=== PATIENT | male | born 1985 | race Caucasian/White ===

== ENCOUNTER 2017-05-10 23:33 | Emergency (ER) | payer BC ==
[~2017-05-10] VITALS: Ht 172.7 cm; Wt 75.0 kg
[2017-05-10 23:36] VITALS: BP 140/90; PULSE 120; RESP 16; TEMP 97.8; O2SAT 98
[2017-05-11 00:07] VITALS: BP 139/95; PULSE 108; RESP 18; O2SAT 100
[2017-05-11] MEDS ORDERED: SODIUM CHLOR 0.9% 1000 ML INJ 1,000 ML IV ONE (00:12)
[2017-05-11] MEDS ORDERED: SODIUM CHLORIDE 0.9% FLUSH 10 ML FLUSH IVF PRN (00:15)
[2017-05-11] MEDS ORDERED: ALPR.5 PO (00:16)
[2017-05-11] MEDS ORDERED: SUBO2MIS SL (00:16)
[2017-05-11] MEDS ORDERED: METH36 PO (00:16)
[2017-05-11] MEDS ORDERED: CLON0.1T PO (00:16)
[2017-05-11 00:44] LABS: AUTOMATED NEUTROPHIL # 3.8 TH/MM3 (1.8-7.7); BASOPHIL % 0.7 % (0.0-2.0); EOSINOPHIL # 0.1 TH/MM3 (0-0.4); EOSINOPHIL % 1.4 % (0.0-4.0); HEMATOCRIT 44.9 % (39.0-51.0); LYMPH % 35.9 % (9.0-44.0); LYMPHOCYTE # 2.4 TH/MM3 (1.0-4.8); MEAN CELL VOLUME 92.4 FL (80.0-100.0); MEAN CORPUSCULAR HEMOGLOBIN 32.9 PG (27.0-34.0); MEAN CORPUSCULAR HGB CONC 35.6 % (32.0-36.0); MEAN PLATELET VOLUME 9.8 FL (7.0-11.0); MONO % 5.9 % (0.0-8.0); MONOCYTE # 0.4 TH/MM3 (0-0.9); NEUT % 56.1 % (16.0-70.0); PLATELET COUNT 170 TH/MM3 (150-450); RED BLOOD COUNT 4.86 MIL/MM3 (4.50-5.90); RED CELL DISTRIBUTION WIDTH 12.6 % (11.6-17.2); WHITE BLOOD COUNT 6.7 TH/MM3 (4.0-11.0)
[2017-05-11 00:52] LABS: PROTHROMBIN TIME - PATIENT 10.1 SEC (9.8-11.6)
--- NOTE | 2017-05-11 01:12 | RADRPT ---
EXAM DATE/TIME: 05/11/2017 00:39 [facility] COMPARISON: No previous studies available for comparison. INDICATIONS : Short of breath. MEDICAL HISTORY : None. SURGICAL HISTORY : None. ENCOUNTER: Initial ACUITY: 1 day PAIN SCORE: Non-responsive. LOCATION: Bilateral chest FINDINGS: The cardiac silhouette is enlarged in transverse diameter. The lungs are free of acute parenchymal op acity. No effusions are identified. Osseous structures are intact. CONCLUSION: Cardiomegaly. No acute cardiopulmonary disease. Joss Alvarez MD on May 11, 2017 at 1:09 Board Certified Radiologist. This report was verified electronically.
[2017-05-11 01:13] LABS: ALBUMIN 4.1 GM/DL (3.4-5.0); ALT (GPT) 67 U/L (12-78); AST (GOT) 37 U/L (15-37); BICARBONATE 31.8 MEQ/L (21.0-32.0); BLOOD UREA NITROGEN 10 MG/DL (7-18); CALCIUM 8.9 MG/DL (8.5-10.1); CHLORIDE 109 MEQ/L (98-107); CREATININE 0.82 MG/DL (0.60-1.30); GLOMERULAR FILTRATION RATE 111 ML/MIN (>89); GLUCOSE,RANDOM 66 MG/DL (74-106); SODIUM (NA) 147 MEQ/L (136-145)
[2017-05-11 01:15] LABS: ALKALINE PHOSPHATASE 53 U/L (45-117); TOTAL BILIRUBIN ADULT 0.2 MG/DL (0.2-1.0); TOTAL PROTEIN 7.5 GM/DL (6.4-8.2)
[2017-05-11 01:16] LABS: ACETAMINOPHEN LESS THAN 2.0 MCG/ML (10.0-30.0)
[2017-05-11] MEDS ORDERED: THIAMINE INJ 100 MG in SODIUM CHLORIDE 0.9% INJ 100 ML IV ONE (01:30)
--- NOTE | 2017-05-11 01:38 | PD ---
HPI Chief Complaint: OD/ Ingestion Time Seen by Provider: 00:04 Travel History International Travel<30 days: No Contact w/Intl Traveler<30days: No Traveled to known affect area: No History of Present Illness HPI The patient is a 31 year old male who presents to the [facility] emergency department with a history of increased mood instability since having problems with the mother of his child. The patient reports that he began to drink alcohol to cope. He reports having a prior history of polysubstance abuse and alcohol abuse, however he had been abstaining from alcohol for the last few months up until recently. The patient reports that this evening he also between 9:30 and 10 PM took approximately 20 tablets of sleep aid, a diphenhydramine-containing medication, 25 mg tablets. He reports that he often takes this medication to help with sleep. He reports that usually he will take up to 5-6 tablets at a time. The patient reports that this evening he also drank a significant amount of whiskey. The patient's mother and father accompany him to this emergency department visit. They report concern that the patient is suicidal. The patient denies being suicidal at this time, however he does report feeling hopeless regarding his situation with the mother of his child. The patient reports that in the past he has been diagnosed with anxiety and other psychiatric disorders. He reports that over the last few months he has been on Xanax under the care of Dr. keith. The patient reports that he's had psychiatric problems since he was 14 years of age. He reports that his main problem at this point is difficulty's with family. He reports that he has family counseling scheduled for according to his mom and dad at the bedside. On review of systems otherwise, the patient denies having any known recent fevers, cough, congestion, neck pain, chest pain, shortness of breath, abdominal pain, vomiting, diarrhea, urinary symptoms, or neurologic symptoms. 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) Other Surgery: Yes (choclear implant) Social History Alcohol Use: Yes (half a bottle of whiskey tonight) Tobacco Use: Yes (one pack per day) Substance Use: No (suboxin) Allergies-Medications (Allergen,Severity, Reaction): Coded Allergies: sulfamethoxazole (Verified Allergy, Severe, 05/10/17) as a child trimethoprim (Verified Allergy, Severe, 05/10/17) as a child Reported Meds & Prescriptions Reported Meds & Active Scripts Active Reported Clonidine (Clonidine HCl) 0.1 Mg Tab 0.1 Mg PO BID Suboxone Sublingual Film (Buprenorphine-Naloxone Sublingual Film) 2-0.5 Mg Film 1 Film SL Unique ID number required: Concerta (Methylphenidate HCl) 36 Mg Bony 36 Mg PO DAILY Xanax (Alprazolam) 0.5 Mg Tab 0.5 Mg PO Q4H PRN Review of Systems Except as stated in HPI: all other systems reviewed are Neg General / Constitutional: No: Fever Eyes: No: Visual changes HENT: No: Headaches Cardiovascular: No: Chest Pain or Discomfort Respiratory: No: Shortness of Breath Gastrointestinal: No: Abdominal Pain Genitourinary: No: Dysuria Musculoskeletal: No: Pain Skin: No Rash Neurologic: Positive: Change in Mentation, Slurred Speech, No: Weakness, Focal Abnormalities, Sensory Disturbance Psychiatric: Positive: Anxiety, Depression, Mood Disorder, Substance Abuse, No : Homicidal Ideation Endocrine: No: Polydipsia Hematologic/Lymphatic: No: Easy Bruising Physical Exam Narrative General: The patient is a well-developed well-nourished male in no acute distress. Head and Neck exam: Head is normocephalic, with an abrasion noted to the nasal bridge/center of the forehead. Eyes: EOMI, pupils are equal round and reactive to light. Nose: Midline septum with pink mucous membranes Mouth: Dentition unremarkable. Moist mucus membranes. Posterior oropharynx is not erythematous. No tonsillar hypertrophy. Uvula midline. Airway patent. Neck: No palpable lymphadenopathy. No nuchal rigidity. No thyromegaly. Cardiovascular: Regular rate and rhythm without murmurs, gallops, or rubs. Lungs: Clear to auscultation bilaterally. No wheezes, rhonchi, or rales. Abdomen: Soft, without tenderness to palpation in all 4 quadrants of the abdomen. No guarding, rebound, or rigidity. Normal bowel sounds are audible. No tenderness on palpation of McBurney's point. Extremities: No clubbing, cyanosis, or edema. 2+ pulses in all 4 extremities. No calf tenderness on palpation. Back: No costovertebral angle tenderness to palpation. Neurologic Exam: Grossly nonfocal. The patient is oriented to person, place, situation, however not time. Patient has slurred speech and an odor of alcohol about him. Skin Exam: No rash noted. Intact skin that is warm and dry. Data Data Last Documented VS Vital Signs Date Time Temp Pulse Resp B/P (MAP) Pulse Ox O2 Delivery O2 Flow Rate FiO2 05/11/17 07:10 05/11/17 04:20 76 16 96 Room Air 05/10/17 23:36 97.8 Orders Orders Electrocardiogram (05/11/17 00:12) Complete Blood Count With Diff (05/11/17 00:12) Comprehensive Metabolic Panel (05/11/17 00:12) Prothrombin Time / Inr (Pt) (05/11/17 00:12) Act Partial Throm Time (Ptt) (05/11/17 00:12) Osmolality,Serum (05/11/17 00:12) Osmolality, Urine (05/11/17 00:12) Urinalysis - C+S If Indicated (05/11/17 00:12) Chest, Single Ap (05/11/17 00:12) Blood Glucose (05/11/17 00:12) Iv Access Insert/Monitor (05/11/17 00:12) Ecg Monitoring (05/11/17 00:12) Oximetry (05/11/17 00:12) Sodium Chloride 0.9% Flush (Ns Flush) (05/11/17 00:15) Sodium Chlor 0.9% 1000 Ml Inj (Ns 1000 M (05/11/17 00:12) Drug Screen, Random Urine (05/11/17 00:12) Alcohol (Ethanol) (05/11/17 00:12) Salicylates (Aspirin) (05/11/17 00:12) Tylenol (Acetaminophen) (1/9/18 00:12) Ct Brain W/O Iv Contrast(Rout) (05/11/17 00:12) Thiamine Inj (Thiamine Inj) (05/11/17 01:30) Bedside Glucose OTTO.CSUGAR (05/11/17 01:38) Psych Screen (05/11/17 03:57) Ed Discharge Order (05/11/17 06:31) Labs Laboratory Tests Test 05/11/17 00:25 05/11/17 04:10 White Blood Count 6.7 TH/MM3 Red Blood Count 4.86 MIL/MM3 Hemoglobin 16.0 GM/DL Hematocrit 44.9 % Mean Corpuscular Volume 92.4 FL Mean Corpuscular Hemoglobin 32.9 PG Mean Corpuscular Hemoglobin Concent 35.6 % Red Cell Distribution Width 12.6 % Platelet Count 170 TH/MM3 Mean Platelet Volume 9.8 FL Neutrophils (%) (Auto) 56.1 % Lymphocytes (%) (Auto) 35.9 % Monocytes (%) (Auto) 5.9 % Eosinophils (%) (Auto) 1.4 % Basophils (%) (Auto) 0.7 % Neutrophils # (Auto) 3.8 TH/MM3 Lymphocytes # (Auto) 2.4 TH/MM3 Monocytes # (Auto) 0.4 TH/MM3 Eosinophils # (Auto) 0.1 TH/MM3 Basophils # (Auto) 0.0 TH/MM3 CBC Comment DIFF FINAL Differential Comment Prothrombin Time 10.1 SEC Prothromb Time International Ratio 1.0 RATIO Activated Partial Thromboplast Time 25.8 SEC Blood Urea Nitrogen 10 MG/DL Creatinine 0.82 MG/DL Random Glucose 66 MG/DL Total Protein 7.5 GM/DL Albumin 4.1 GM/DL Calcium Level 8.9 MG/DL Alkaline Phosphatase 53 U/L Aspartate Amino Transf (AST/SGOT) 37 U/L Alanine Aminotransferase (ALT/SGPT) 67 U/L Total Bilirubin 0.2 MG/DL Sodium Level 147 MEQ/L Potassium Level 3.4 MEQ/L Chloride Level 109 MEQ/L Carbon Dioxide Level 31.8 MEQ/L Anion Gap 6 MEQ/L Estimat Glomerular Filtration Rate 111 ML/MIN Serum Osmolality 362 MOSM/KG Salicylates Level 3.7 MG/DL Acetaminophen Level LESS THAN 2.0 MCG/ML Ethyl Alcohol Level 226 MG/DL Urine Color LIGHT-YELLOW Urine Turbidity CLEAR Urine pH 6.5 Urine Specific [place] 1.009 Urine Protein NEG mg/dL Urine Glucose (UA) NEG mg/dL Urine Ketones NEG mg/dL Urine Occult Blood NEG Urine Nitrite NEG Urine Bilirubin NEG Urine Urobilinogen LESS THAN 2.0 MG/DL Urine Leukocyte Esterase NEG Urine RBC LESS THAN 1 /hpf Urine WBC LESS THAN 1 /hpf Urine Squamous Epithelial Cells <1 /hpf Urine Mucus FEW /lpf Microscopic Urinalysis Comment CULT NOT INDICATED Urine Osmolality 422 MOSM/KG Urine Opiates Screen NEG Urine Barbiturates Screen NEG Urine Amphetamines Screen NEG Urine Benzodiazepines Screen POS Urine Cocaine Screen NEG Urine Cannabinoids Screen NEG MDM Medical Decision Making Medical Screen Exam Complete: Yes Emergency Medical Condition: Yes Medical Record Reviewed: Yes Interpretation(s) Last Impressions Head CT 05/11/1711 Signed Impressions: Service Date/Time: Thursday, May 11, 2017 01:41 - CONCLUSION: 1. No evidence of acute intracranial pathology. No masses are identified. Joss Alvarez MD Chest X-Ray 05/11/1711 Signed Impressions: Service Date/Time: Thursday, May 11, 2017 00:39 - CONCLUSION: Cardiomegaly. No acute cardiopulmonary disease. Joss Alvarez MD Differential Diagnosis Substance-induced mood disorder, versus depression with suicidal attempt, versus alcohol intoxication, versus other substance intoxication Narrative Course During the course of the patients emergency department visit, the patients history, examination, and differential diagnosis were reviewed with the patient. The patient was placed on a environmental air specialist with oximetry and frequent blood pressure monitoring. The patient had IV access obtained and blood work sent for analysis. The patient on arrival had an EKG done. The patient's EKG shows a sinus rhythm heart rate of 96, incomplete right bundle branch block is noted. QRS duration is 104 ms, QTC [address] segment elevation, T waves are inverted in V2. A psychiatric screen was ordered. The patient was initially provided normal saline 1 L IV fluid bolus, thiamine 100 mg IV The patients laboratory studies were reviewed and remarkable for a CBC that is within normal limits. CMP is remarkable for sodium of 147, potassium 3.4, chloride 109, glucose 66, serum osmolality 362, PT 10.1, PTT 25.8, alcohol level CCXXVI, acetaminophen less than 2, salicylate 3.7, urine drug screen was positive for benzodiazepines. Radiology studies were reviewed and remarkable for a chest x-ray shows cardiomegaly, no other acute cardiopulmonary disease. On repeat evaluation, the patient is more easily awakened. The patient's speech is less tolerant slurred. The patient has no evidence of hallucinations. No dilated pupils. The patient is not erythematous or warm to touch. The patient has no sinus tachycardia. The patient is able to provide more history and reports that he did take sleep medication, however he only to 2 -3 tablets. The patient has been medically cleared for evaluation by the psychiatric screener. As the patient was awaiting psychiatric screen on a voluntary basis, the patient reported that he would like to leave. I had a lengthy discussion with him and his mom and dad. The patient is awake and alert at this point. The patient is no longer slurring his speech. The patient reports that he was just trying to sleep. He denies any suicidal or homicidal ideations. He reports that he drank too much alcohol this evening in combination with taking the sleep aid. He now reports that he only took 2 or 3 tablets. The patient reports that he is scheduled for family counseling on . The patient at this point does not want to stay for evaluation by the psychiatric screener. The patient's mom and dad report that he will be staying with them. They report feeling safe that the patient can be discharged home. The patient contracts for safety. The patient does not meet criteria for [place] acting, therefore the patient will be discharged home. The patient is resting comfortably and feels better, is alert and in no distress. The patients results and examination findings were discussed with the patient. The repeat examination is unremarkable and benign. The history, exam, diagnostic testing, and current condition do not suggest any significant pathology to warrant further testing, continued ED treatment, admission, or surgical evaluation at this point. The vital signs have been stable. The patient does not have uncontrollable pain, intractable vomiting, or other significant symptoms. The patient's condition is stable and appropriate for discharge. The patient will pursue further outpatient evaluation with a primary care physician or other designated or consulting physician as indicated in the discharge instructions. The patient expressed understanding and was agreeable with this plan. Diagnosis Primary Impression: Depression Qualified Codes: F32.9 - Major depressive disorder, single episode, unspecified Referrals: Psychiatrist 2 days Patient Instructions: Depression (ED), General Instructions Additional Instructions: Follow-up with family counseling as previously planned on . Return back to the ER immediately if you have any thoughts of harming herself or others. Disposition: 01 DISCHARGE HOME Condition: Arabella Cruz MD May 11, 2017 01:38
--- NOTE | 2017-05-11 02:07 | RADRPT ---
EXAM DATE/TIME: 05/11/2017 01:41 [facility] COMPARISON: No previous studies available for comparison. INDICATIONS : Altered mental status; possible overdose. RADIATION DOSE: 33.12 CTDIvol (mGy) MEDICAL HISTORY : Hypertension. ETOH abuse, prior trauma SURGICAL HISTORY : Craniotomy. plate in head ENCOUNTER: Initial ACUITY: 1 day PAIN SCALE: Non-responsive LOCATION: cranial TECHNIQUE: Multiple contiguous axial images were obtained of the head. Using automated exposure control and adj ustment of the mA and/or kV according to patient size, radiation dose was kept as low as reasonably a chievable to obtain optimal diagnostic quality images. DICOM format image data is available electro nically for review and comparison. FINDINGS: The exam is limited secondary to beam hardening from a subcutaneous metallic implant in the right par ietal region Noncontrast axial head CT demonstrates the ventricles to be normal in size and configura tion with a normal sulcal pattern. No acute intracranial hemorrhage, acute cortical infarction, mass or midline shift is seen. Posterior fossa structures are unremarkable. Bone windows are unremarkable. CONCLUSION: 1. No evidence of acute intracranial pathology. No masses are identified. Joss Alvarez MD on May 11, 2017 at 2:04 Board Certified Radiologist. This report was verified electronically.
[2017-05-11 04:20] VITALS: BP 107/65; PULSE 76; RESP 16; O2SAT 96
[2017-05-11 04:32] LABS: BILIRUBIN, URINE NEG (NEG); BLOOD, URINE NEG (NEG); GLUCOSE,URINE NEG (NEG); KETONE, URINE NEG (NEG); MUCUS URINE FEW /lpf (OCC); NITRITE,URINE NEG (NEG); PH, URINE 6.5 (5.0-8.5); SQUAMOUS EPITHELIAL CELL URINE <1 /hpf (0-5); URINE COLOR LIGHT-YELLOW (YELLW/STRAW); URINE LEUKOCYTE ESTERASE NEG (NEG)
--- NOTE | 2017-05-11 14:07 | EKG ---
Date Performed: 05/11/2017 Time Performed: 00:43:35 PTAGE: 31 years EKG: Sinus rhythm POSSIBLE LEFT ATRIAL ENLARGEMENT INDETERMINATE AXIS INCOMPLETE RIGHT BUNDLE BRANCH BLOCK BORDERLINE ECG NO PREVIOUS TRACING DOCTOR: Shaq Romero Interpretating Date/Time 05/11/2017 14:05:50
== END 2017-05-11 07:07 | disposition home or self-care (01) ==
LOC: NEPC 23:33
DX: F32.9 Major depressive disorder, single episode, unspecified (principal); I51.7 Cardiomegaly; I45.10 Unspecified right bundle-branch block; F90.9 Attention-deficit hyperactivity disorder, unspecified type; I10 Essential (primary) hypertension; F41.9 Anxiety disorder, unspecified; F17.200 Nicotine dependence, unspecified, uncomplicated; Z79.899 Other long term (current) drug therapy; Z88.2 Allergy status to sulfonamides
CPT/HCPCS: 70450; 71045; 80053; 80307; 81001; 83930; 83935; 85025; 85610; 85730; 93005; 96374; 99285; J3411; J7030